=== PATIENT | female | born 1985 | race African-American/Black ===

== ENCOUNTER 2017-09-21 15:50 | Inpatient (IN) | payer SELFPAY ==
[2017-09-21] MEDS ORDERED: DiphenhydrAMINE HCL 50 MG/ML VIAL ONE (16:22)
[2017-09-21] MEDS ORDERED: LORazepam 2 MG/ML VIAL ONE (16:22)
[2017-09-21] MEDS ORDERED: HALOPERIDOL LACTATE 5 MG/ML VIAL ONE (16:23)
[2017-09-21] MEDS ORDERED: HALOPERIDOL LACTATE 5 MG/ML VIAL IM ONE (16:30)
[2017-09-21] MEDS ORDERED: LORazepam 2 MG/ML VIAL IM ONE (16:30)
[2017-09-21] MEDS ORDERED: HALOPERIDOL 5 MG TABLET PO PRN (16:30)
[2017-09-21] MEDS ORDERED: DiphenhydrAMINE HCL 50 MG/ML VIAL IM ONE (16:30)
[2017-09-21] MEDS ORDERED: ZOLPIDEM TARTRATE 10 MG TABLET PO PRN (16:30)
[2017-09-21] MEDS ORDERED: LORazepam 2 MG TABLET PO PRN (16:30)
[2017-09-21 17:10] VITALS: BP 140/88
[2017-09-21 17:39] VITALS: BP 143/100
[2017-09-21] MEDS ORDERED: INFLUENZA VIRUS VACCINE QVS 2017-18 (3YR+)/PF 60 MCG/0.5 ML SYRINGE IM ONE (18:00)
[2017-09-22] MEDS: OLANZapine 5 MG TABLET PO SCH (21:00)
[2017-09-22] MEDS ORDERED: IBUPROFEN 400 MG TABLET PO PRN (22:00)
[2017-09-22] MEDS ORDERED: ACETAMINOPHEN 325 MG TABLET PO PRN (22:00)
[2017-09-23] MEDS: OLANZapine 5 MG TABLET PO SCH ×2 (09:00→20:46)
[2017-09-23] MEDS ORDERED: OLAN5TAB2 PO (11:46)
[2017-09-24 08:30] VITALS: BP 119/76
[2017-09-24] MEDS: OLANZapine 5 MG TABLET PO SCH (09:00)
== END 2017-09-24 21:01 | disposition home or self-care (01) | DRG 885 ==
LOC: B3A 16:40
PROVIDERS: ADMIT Psychiatry & Neurology Child & Adolescent Psychiatry; ATTEND Psychiatry & Neurology Child & Adolescent Psychiatry
DX: F20.0 Paranoid schizophrenia (principal); Z59.0 Homelessness; I10 Essential (primary) hypertension; R00.0 Tachycardia, unspecified
CPT/HCPCS: J1200; J1630; J2060

== ENCOUNTER 2018-05-24 18:08 | Inpatient (IN) | payer MEDICAID ==
[~2018-05-24] VITALS: Ht 154.9 cm; Wt 59.5 kg
[~2018-05-24 18:08] MED LIST: OLAN5TAB2 PO
[2018-05-24 20:09] LABS: BASOPHILS % (AUTO) 0.8 % (0.0-2.0); EOSINOPHILS % (AUTO) 2.7 % (1.0-6.0); HEMATOCRIT 37.9 % (36-46); HEMOGLOBIN 12.4 g/dL (12.0-16.0); LYMPHOCYTES # (AUTO) 2.2 K/uL (1.0-4.8); LYMPHOCYTES % (AUTO) 32.8 % (22.0-44.0); MEAN CORPUSCULAR HGB CONC 32.7 G/dL (31.0-37.0); MEAN CORPUSCULAR VOLUME 85 fL (80-100); MONOCYTES # (AUTO) 0.5 K/uL (0.1-1.0); NEUTROPHILS # (AUTO) 3.9 K/uL (1.8-7.7); NEUTROPHILS % (AUTO) 56.7 % (40.0-70.0); PLATELET COUNT (AUTO) 325 K/uL (150-450); RED BLOOD CELL COUNT(AUTO) 4.43 MIL/uL (4.00-5.20)
[2018-05-24] MEDS ORDERED: ZOLPIDEM TARTRATE 10 MG TABLET PO PRN (20:30)
[2018-05-24] MEDS ORDERED: HALOPERIDOL 5 MG TABLET PO PRN (20:30)
[2018-05-24] MEDS ORDERED: LORazepam 2 MG TABLET PO PRN (20:30)
[2018-05-24 20:39] LABS: ANION GAP 7 mmol/L (8-16); CALCIUM, TOTAL 9.4 mg/dL (8.8-10.5); CARBON DIOXIDE 27 mmol/L (22-29); CHLORIDE 106 mmol/L (98-107); CREATININE 0.82 mg/dL (0.60-1.30); GLOMERULAR FILTR. RATE CALC > 60 mL/min (>60); GLUCOSE,RANDOM 97 mg/dL (70-110); POTASSIUM 4.5 mmol/L (3.5-5.1); SODIUM SERUM 140 mmol/L (136-145); UREA NITROGEN, BLOOD 13 mg/dL (7-18)
[2018-05-24 20:45] LABS: ALANINE AMINOTRANSFERASE 25 U/L (12-78); ALBUMIN 3.4 g/dL (3.4-5.0); ALKALINE PHOSPHATASE 78 U/L (46-116); ASPARTATE AMINOTRANSFERASE 24 U/L (15-37); BILIRUBIN,TOTAL 0.3 mg/dL (0.1-1.0); TOTAL PROTEIN, SERUM 7.3 g/dL (6.4-8.2)
[2018-05-24] MEDS ORDERED: PNEUMOCOCCAL VACCINE POLYVALENT 0.5 ML VIAL [PPSV23] IM ONE (22:15)
[2018-05-24] MEDS ORDERED: ACETAMINOPHEN 325 MG TABLET PO PRN (22:30)
[2018-05-24] MEDS ORDERED: DOCUSATE SODIUM 100 MG CAPSULE PO PRN (22:30)
[2018-05-24] MEDS ORDERED: IBUPROFEN 400 MG TABLET PO PRN (22:30)
[2018-05-24] MEDS ORDERED: MAGNESIUM HYDROXIDE SUSPENSION 30 ML UDCUP PO PRN (22:30)
[2018-05-24] MEDS ORDERED: LOPERAMIDE HCL 2 MG CAPSULE PO PRN (22:30)
[2018-05-24] MEDS ORDERED: CloNIDine HCL 0.1 MG TABLET PO PRN (22:30)
[2018-05-24] MEDS ORDERED: MAG HYDROX/AL HYDROX/SIMETH ES 30 ML SUSPENSION UDCUP PO PRN (22:30)
[2018-05-24] MEDS ORDERED: PETROLATUM,WHITE 71 GM JELLY TP PRN (22:30)
[2018-05-24] MEDS ORDERED: ALBUTEROL SULFATE HFA 90 MCG/PUFF 8 GM INHALER IH PRN (22:30)
[2018-05-24] MEDS ORDERED: ONDANSETRON HCL 4 MG TABLET PO PRN (22:30)
[2018-05-25 06:12] VITALS: BP 132/81
[2018-05-25 08:23] VITALS: BP 126/63
[2018-05-25 16:10] VITALS: BP 116/78
[2018-05-25] MEDS: OLANZapine 7.5 MG TABLET PO SCH ×2 (20:36→20:51)
[2018-05-26 06:28] VITALS: BP 122/73
[2018-05-26 08:18] LABS: BASOPHILS % (AUTO) 1.2 % (0.0-2.0); EOSINOPHILS % (AUTO) 3.3 % (1.0-6.0); HEMATOCRIT 40.9 % (36-46); HEMOGLOBIN 13.6 g/dL (12.0-16.0); LYMPHOCYTES # (AUTO) 2.1 K/uL (1.0-4.8); LYMPHOCYTES % (AUTO) 48.3 % (22.0-44.0); MEAN CORPUSCULAR HEMOGLOBIN 28.2 pg (26.0-34.0); MEAN CORPUSCULAR HGB CONC 33.2 G/dL (31.0-37.0); MEAN CORPUSCULAR VOLUME 85 fL (80-100); MONOCYTES # (AUTO) 0.4 K/uL (0.1-1.0); MONOCYTES % (AUTO) 9.2 % (2.0-9.0); NEUTROPHILS # (AUTO) 1.6 K/uL (1.8-7.7); PLATELET COUNT (AUTO) 332 K/uL (150-450); RED BLOOD CELL COUNT(AUTO) 4.82 MIL/uL (4.00-5.20); RED CELL DISTRIBUTION WIDTH 15.1 % (11.5-14.5)
[2018-05-26 08:43] LABS: HEMOGLOBIN A1C 5.1 % (4.5-6.2)
[2018-05-26 08:49] VITALS: BP 119/76
[2018-05-26 08:58] LABS: ALANINE AMINOTRANSFERASE 23 U/L (12-78); ALBUMIN 3.2 g/dL (3.4-5.0); ALKALINE PHOSPHATASE 71 U/L (46-116); ANION GAP 8 mmol/L (8-16); ASPARTATE AMINOTRANSFERASE 21 U/L (15-37); BILIRUBIN,TOTAL 0.2 mg/dL (0.1-1.0); CALCIUM, TOTAL 8.7 mg/dL (8.8-10.5); CARBON DIOXIDE 25 mmol/L (22-29); CHLORIDE 104 mmol/L (98-107); CHOL/HDL RATIO 1.8 (3.9-5.7); CHOLESTEROL 114 mg/dL (131-200); CREATININE 0.65 mg/dL (0.60-1.30); GLOMERULAR FILTR. RATE CALC > 60 mL/min (>60); GLUCOSE,RANDOM 81 mg/dL (70-110); HDL CHOLESTEROL 65 mg/dL (40-60); LDL CHOL (CALC.) 34 mg/dL (0-130); SODIUM SERUM 137 mmol/L (136-145); THYROID STIMULATING HORMONE 0.47 uIU/mL (0.36-3.74); TOTAL PROTEIN, SERUM 7.1 g/dL (6.4-8.2); TRIGLYCERIDES 73 mg/dL (15-150); UREA NITROGEN, BLOOD 14 mg/dL (7-18)
[2018-05-26 16:13] VITALS: BP 114/74
[2018-05-26] MEDS: OLANZapine 7.5 MG TABLET PO SCH (21:00)
[2018-05-27 01:48] VITALS: BP 100/61
[2018-05-27 16:17] VITALS: BP 117/65
[2018-05-27] MEDS: OLANZapine 7.5 MG TABLET PO SCH (20:57)
[2018-05-28 06:30] VITALS: BP 110/65
[2018-05-28 08:21] LABS: BASOPHILS % (AUTO) 0.7 % (0.0-2.0); EOSINOPHILS % (AUTO) 2.3 % (1.0-6.0); LYMPHOCYTES # (AUTO) 1.9 K/uL (1.0-4.8); LYMPHOCYTES % (AUTO) 37.9 % (22.0-44.0); MEAN CORPUSCULAR HEMOGLOBIN 28.5 pg (26.0-34.0); MEAN CORPUSCULAR HGB CONC 33.4 G/dL (31.0-37.0); MEAN CORPUSCULAR VOLUME 85 fL (80-100); MONOCYTES # (AUTO) 0.6 K/uL (0.1-1.0); MONOCYTES % (AUTO) 10.9 % (2.0-9.0); NEUTROPHILS # (AUTO) 2.4 K/uL (1.8-7.7); NEUTROPHILS % (AUTO) 48.2 % (40.0-70.0); PLATELET COUNT (AUTO) 320 K/uL (150-450); RED BLOOD CELL COUNT(AUTO) 4.92 MIL/uL (4.00-5.20)
[2018-05-28 09:51] LABS: FOLATE SERUM 13.2 ng/mL (5.4-)
[2018-05-28 16:00] VITALS: BP 102/62
[2018-05-28] MEDS: OLANZapine 7.5 MG TABLET PO SCH (20:51)
[2018-05-29 03:01] VITALS: BP 112/71
[2018-05-29 08:56] VITALS: BP 97/55
[2018-05-29 16:32] VITALS: BP 116/60
[2018-05-29] MEDS: OLANZapine 7.5 MG TABLET PO SCH (20:25)
[2018-05-30 06:38] VITALS: BP 102/65
[2018-05-30 08:25] VITALS: BP 121/73
[2018-05-30] MEDS ORDERED: OLAN7.5T2 PO (14:49)
[2018-05-30 16:28] VITALS: BP 115/62
== END 2018-05-30 17:10 | disposition home or self-care (01) | DRG 750 ==
LOC: EMS 18:09 → B3A 20:00
PROVIDERS: ADMIT Psychiatry & Neurology Psychiatry; ATTEND Psychiatry & Neurology Psychiatry
DX: F20.0 Paranoid schizophrenia (principal); I10 Essential (primary) hypertension; F17.210 Nicotine dependence, cigarettes, uncomplicated; Z28.21 Immunization not carried out because of patient refusal
CPT/HCPCS: 82607; 82746; 83036; 84443; 99285; G0480